=== PATIENT | male | born 1985 | race African-American/Black ===

== ENCOUNTER 2016-11-20 19:44 | Emergency (ER) | payer OTHER ==
[~2016-11-20] VITALS: Ht 170.2 cm; Wt 113.5 kg
[2016-11-20] MEDS ORDERED: SILVER SULFADIAZINE 1% 25 GM CREAM TP ONE (20:30)
[2016-11-20] MEDS ORDERED: HYDROCODONE/ACETAMINOPHEN 10-325 MG TABLET PO ONE (20:30)
[2016-11-20] MEDS ORDERED: PERTUSS(ACELL),DIPH,TET VAC/PF 0.5 ML VIAL IM ONE (20:30)
[2016-11-20 21:38] VITALS: BP 125/80
== END 2016-11-20 21:40 | disposition home or self-care (01) ==
LOC: EMS 19:45
DX: T23.261A Burn of second degree of back of right hand, initial encounter (principal); F17.210 Nicotine dependence, cigarettes, uncomplicated; X12.XXXA Contact with other hot fluids, initial encounter; Y93.89 Activity, other specified; Y92.69 Other specified industrial and construction area as the place of occurrence of the external cause; Y99.0 Civilian activity done for income or pay
CPT/HCPCS: 16020; 90471; 90715; 99284